=== PATIENT | female | born 1995 | race Two or more races ===

== ENCOUNTER 2019-05-03 00:04 | Emergency (ER) | payer MEDICAID, OTHER ==
[~2019-05-03] VITALS: Ht 157.5 cm; Wt 60.8 kg
[2019-05-03 00:13] VITALS: BP 115/66
== END 2019-05-03 02:15 | disposition home or self-care (01) ==
LOC: ER 00:08
DX: J06.9 Acute upper respiratory infection, unspecified (principal)

== ENCOUNTER → 2020-05-13 | Outpatient (CLI) | payer BC, MEDICAID, OTHER | END | disposition home or self-care (01) | LOC: XYW 04-10 10:30 | PROVIDERS: ATTEND Psychiatry & Neurology Neurology | DX: R42 Dizziness and giddiness (principal); R56.9 Unspecified convulsions | CPT/HCPCS: 70551 ==

== ENCOUNTER 2020-07-01 20:44 | Emergency (ER) | payer BC ==
[~2020-07-01] VITALS: Ht 154.9 cm; Wt 73.5 kg
[2020-07-01 22:13] LABS: Basophils # (auto) 0.1 10 ^3/uL (0-0.2); Eosinophils # (auto) 0.1 10 ^3/uL (0-0.8); Hemoglobin 13.2 g/dL (12.2-16.2); Lymphocytes # (auto) 4.3 10 ^3/uL (0.4-5.4); Mean Corpuscular Hgb Conc. 33.8 g/dL (32.0-36.0); Monocytes # (auto) 0.7 10 ^3/uL (0-1.3); White Blood Cell 13.2 10^3/uL (4.4-10.8)
[2020-07-01 22:14] LABS: Basophils % (auto) 0.4 % (0.0-2.0); Hematocrit 39.2 % (36.0-46.0); Mean Corpuscular Hemoglobin 26.7 pg (28.0-32.0); Neutrophils % (auto) 60.6 % (37.0-80.0); Platelet Count (auto) 417 10^3/uL (140-450); Red Blood Cells 4.95 10^6/uL (4.0-5.20); Red Cell Distribution Width 13.4 % (11.8-14.3)
[2020-07-01 22:30] LABS: Albumin 3.7 g/dL (3.4-5.0); Anion Gap 6 (5-15); Aspartate Aminotransferase 16 U/L (15-37); BUN/Creatinine Ratio 13.4; Blood Urea Nitrogen 11 mg/dL (7-18); Calcium 8.8 mg/dL (8.5-10.1); Carbon Dioxide 24 mmol/L (21-32); Chloride 107 mmol/L (98-107); GFR African American 108 mL/min; GFR Non-African American 90 mL/min; Glucose 96 mg/dL (74-106); Magnesium 2.4 mg/dL (1.6-2.6); Potassium 3.7 mmol/L (3.5-5.1); Sodium 137 mmol/L (136-145)
[2020-07-01 22:31] LABS: INR 0.93 (0.9-1.15); Partial Thromboplastin Time 24.8 sec (23.0-31.2)
[2020-07-01 22:39] LABS: Alanine Aminotransferase 24 U/L (13-56); Alkaline Phosphatase 121 U/L (45-117); Bilirubin, Total 0.1 mg/dL (0.2-1.0); Total Protein 8.1 g/dL (6.4-8.2)
[2020-07-01 23:46] LABS: Urine Amorphous Crystal MOD /hpf (None Seen); Urine Bacteria FEW /hpf (None Seen); Urine Blood Negative /uL (Negative); Urine Mucus FEW (None Seen); Urine WBC <1 /hpf (0 - 5)
[2020-07-02 01:00] VITALS: BP 103/64
[2020-07-02] MEDS ORDERED: MECLIZINE HCL 25 MG TAB PO ONE (01:30)
== END 2020-07-02 04:08 | disposition home or self-care (01) ==
LOC: ER 20:45
DX: R42 Dizziness and giddiness (principal)
CPT/HCPCS: 36415; 71045; 80053; 81001; 83735; 84484; 85025; 85610; 85730; 93005; 99285; J8597

== ENCOUNTER 2021-05-14 12:43 | Emergency (ER) | payer BC, OTHER ==
[~2021-05-14] VITALS: Ht 157.5 cm; Wt 65.8 kg
[2021-05-14 14:09] LABS: Eosinophils # (auto) 0.1 10 ^3/uL (0-0.8)
[2021-05-14 14:10] LABS: Basophils # (auto) 0 10 ^3/uL (0-0.2); Basophils % (auto) 0.3 % (0.0-2.0); Eosinophils % (auto) 0.7 % (0.0-7.0); Hematocrit 39.9 % (36.0-46.0); Hemoglobin 13.3 g/dL (12.2-16.2); Lymphocytes % (auto) 18.4 % (10.0-50.0); Mean Corpuscular Hemoglobin 26.4 pg (28.0-32.0); Mean Corpuscular Hgb Conc. 33.4 g/dL (32.0-36.0); Monocytes # (auto) 0.5 10 ^3/uL (0-1.3); Monocytes % (auto) 4.5 % (0.0-12.0); Neutrophils # (auto) 8.1 10 ^3/uL (1.6-8.6); Neutrophils % (auto) 76.1 % (37.0-80.0); Nucleated Red Blood Cells % 0.2 %; Red Blood Cells 5.05 10^6/uL (4.0-5.20); Red Cell Distribution Width 13.7 % (11.8-14.3); White Blood Cell 10.7 10^3/uL (4.4-10.8)
[2021-05-14 14:20] LABS: Anion Gap 6 (5-15); Blood Urea Nitrogen 9 mg/dL (7-18); Calcium 9.1 mg/dL (8.5-10.1); Carbon Dioxide 26 mmol/L (21-32); Chloride 106 mmol/L (98-107); Glucose 92 mg/dL (74-106); Potassium 3.7 mmol/L (3.5-5.1); Sodium 138 mmol/L (136-145)
[2021-05-14 14:36] LABS: Alanine Aminotransferase 20 U/L (13-56); Alkaline Phosphatase 108 U/L (45-117); Aspartate Aminotransferase 15 U/L (15-37); BUN/Creatinine Ratio 11.4; Bilirubin, Total 0.6 mg/dL (0.2-1.0); GFR African American 113 mL/min; GFR Non-African American 94 mL/min; Total Protein 8.1 g/dL (6.4-8.2)
[2021-05-14] MEDS ORDERED: AZIT250T9 PO ×2 (15:38→17:12)
[2021-05-14 15:49] LABS: Urine Bacteria FEW /hpf (None Seen); Urine Blood Negative /uL (Negative); Urine Mucus FEW (None Seen); Urine Specific Gravity 1.028 (1.001-1.035); Urine WBC 2 /hpf (0 - 5)
[2021-05-14 17:16] VITALS: BP 102/68
== END 2021-05-14 17:20 | disposition home or self-care (01) ==
LOC: ER 12:43
DX: J32.9 Chronic sinusitis, unspecified (principal)
CPT/HCPCS: 36415; 71045; 80053; 81001; 84484; 85025; 93005